=== PATIENT | male | born 1960 | race Caucasian/White ===

== ENCOUNTER → 2016-07-27 | Outpatient (CLI) | payer OTHER ==
[~2016-07-27] MED LIST: ACCUPRIL40 MG PO; CIALIS10 MG PO; CIALIS2.5 MG PO; FISH OIL EC 1,1 EACH PO; HYDROCHLOROTHIA25 MG PO; MICROZIDE12.5 M1 PO; MULTI VITAMIN1 EACH PO; PERCOCET 5/31 TABLET PO; TIAZAC180 MG PO
== END | disposition home or self-care (01) ==
LOC: CDC 09:48
DX: Z01.810 Encounter for preprocedural cardiovascular examination (principal); I45.9 Conduction disorder, unspecified; K42.9 Umbilical hernia without obstruction or gangrene
CPT/HCPCS: 93000

== ENCOUNTER 2016-08-03 06:05 | Day surgery (SDC) | payer OTHER ==
[~2016-08-03] VITALS: Ht 182.9 cm; Wt 95.7 kg
[~2016-08-03 06:05] MED LIST changes: -PERCOCET 5/31 TABLET PO
[2016-08-03 07:42] VITALS: BP 110/80
[2016-08-03] MEDS ORDERED: PERCOCET 5/31 TABLET PO (10:10)
[2016-08-03 10:59] VITALS: BP 117/70
[2016-08-03 11:54] VITALS: BP 110/76
== END 2016-08-03 12:02 | disposition home or self-care (01) ==
LOC: SDC 06:05 → EDSTATUS 11:16 → 2SOUTH 11:16 → SDC 11:17
DX: K43.6 Other and unspecified ventral hernia with obstruction, without gangrene (principal); I10 Essential (primary) hypertension; K21.9 Gastro-esophageal reflux disease without esophagitis; D75.1 Secondary polycythemia; I36.1 Nonrheumatic tricuspid (valve) insufficiency; I34.0 Nonrheumatic mitral (valve) insufficiency; N04.9 Nephrotic syndrome with unspecified morphologic changes
CPT/HCPCS: 71020; C1781; J0690; J1170; J2250; J2710; J3010